=== PATIENT | female | born 1985 | race Caucasian/White ===

== ENCOUNTER 2024-04-14 10:52 | Emergency (ER) | payer MEDICARE, MEDICAID, SELFPAY ==
[2024-04-14 10:52] VITALS: BP 128/74; PULSE 100; RESP 17; TEMP 36.9; O2SAT 98; BMI 32.1
--- NOTE | 2024-04-14 11:07 | XR_ITS ---
Examination: Shoulder,left, 3 views Technique: Shoulder AP internal rotation, AP external rotation, Y view shoulder, 3 views Exam date and time :April 14, 2024 1109 hours INDICATIONS: Patient fell today with injury to the shoulder, shoulder pain. FINDINGS: Acute fractures proximal humerus including through the humeral neck and proximal shaft as well as fractures through the humeral head greater tuberosity No shoulder dislocation IMPRESSION: Acute nondisplaced fractures through the proximal humerus including the humeral neck and proximal shaft as well as rib tuberosity of the humeral head
--- NOTE | 2024-04-14 11:21 | PD.EDUPEX ---
Upper Extremity Injury RME/HPI General Chief Complaint: Extremity Injury, Upper Stated Complaint: left shoulder pain from fall this am Time Seen by Provider: 04/14/24 11:07 Arrival date/time: 04/14/24 10:52 39-year-old female presents emergency department complaint of slip and fall today patient reports injuring her left shoulder patient reports no head or neck injury Limitations: no limitations Related Data Home Medications ?Medication ?Instructions ?Recorded ?Confirmed hydrocodone 10 mg-acetaminophen 1 tab PO Q6H PRN Pain ##0 06/23/13 09/16/20 325 mg tablet oxybutynin chloride 5 mg tablet 5 mg PO BID BLADDER CONTROL #0 tabs 12/13/13 09/16/20 metformin 500 mg tablet 500 mg PO BID #0 tabs 06/13/16 09/16/20 (Glucophage) duloxetine 20 mg capsule,delayed 60 mg PO BID 06/18/19 09/16/20 release (Cymbalta) Previous Rx's ?Medication ?Instructions ?Recorded blood sugar diagnostic (Blood #100 ea 09/17/20 Glucose Test strips) blood-glucose meter (Blood Glucose #1 ea 09/17/20 Monitoring kit) insulin glargine 100 unit/mL (3 8 unit (0.08 mL) subcut QAM #15 mL 09/17/20 mL) subcutaneous pen (Lantus Solostar U-100 Insulin) lancets 30 gauge (BD Ultra-Fine II #100 ea 09/17/20 Lancets) midodrine 5 mg tablet 5 mg PO TID #30 tabs 09/17/20 pen needle, diabetic 31 gauge x #50 ea 09/17/20 1/ (Lite Touch Insulin Pen [place]) Allergies Allergy/AdvReac Type Severity Reaction Status Date / Time codeine Allergy Severe Hives Verified 04/14/24 10:56 meloxicam Allergy Severe Abdominal Verified 04/14/24 10:56 Pain nitrofurantoin Allergy Severe VOMITING, Verified 04/14/24 10:56 DIARRHEA propoxyphene Allergy Severe Difficulty Verified 04/14/24 10:56 [From [facility]] Breathing Review of Systems Review of Systems Systems Reviewed: All systems reviewed, normal except as documented Constitutional Constitutional: Reports system reviewed and no additional complaints, except as documented, Denies fever(s) and Denies headache(s) Eyes Eyes: Reports system reviewed and no additional complaints, except as documented and Denies blurry vision ENT Ears, Nose, Mouth, and Throat: Reports system reviewed and no additional complaints, except as documented, Denies headache(s), Denies nasal congestion and Denies nasal discharge Cardiovascular Cardiovascular: Reports system reviewed and no additional complaints, except as documented, Denies chest pain and Denies dyspnea Respiratory Respiratory: Reports system reviewed and no additional complaints, except as documented, Denies chest congestion, Denies cough and Denies dyspnea Gastrointestinal Gastrointestinal: Reports system reviewed and no additional complaints, except as documented and Denies abdominal pain Musculoskeletal Musculoskeletal: Reports system reviewed and no additional complaints, except as documented, Reports arthralgias, Denies deformity, Reports joint swelling, Denies numbness, Reports stiffness and Denies tingling Integumentary/Breasts Skin/Breast: Reports system reviewed and no additional complaints, except as documented and Denies rash Neurologic Neurologic: Reports system reviewed and no additional complaints, except as documented, Reports as per HPI, Denies headache(s), Denies numbness and Denies tingling Past Medical History Past Medical History NEUROLOGIC: Negative Neurological Disorders CARDIAC: Negative Cardiac Disorders ED Exam General Limitations: Present no limitations General appearance: Present alert and in no apparent distress Head Head exam: Present atraumatic Eye Eye exam: Present normal appearance, PERRL and EOMI ENT ENT exam: Present normal exam, normal oropharynx and mucous membranes moist Neck Neck exam: Present normal inspection, full ROM and trachea midline Chest Chest inspection: Present normal inspection and symmetric chest wall rise Respiratory Respiratory exam: Present normal lung sounds bilaterally Cardiovascular Cardiovascular exam: Present regular rate, normal rhythm and normal heart sounds Abdominal Exam Abdominal exam: Present soft and normal bowel sounds Extremities Exam Extremities exam: Present tenderness, normal capillary refill and joint swelling Back Exam Back exam: Present normal inspection and full ROM Neurological Exam Neurological exam: Present alert, oriented X3 and CN II-XII intact Psychiatric Psychiatric exam: Present normal affect and normal mood Skin Skin exam: Present warm, dry, intact and normal color Course Quality Measures none Orders Category Date Time Status XR shoulder LT min 2V Stat Exams 04/14/24 11:07 Completed Vital Signs Vital signs: Vital Signs Temperature 98.5 F 04/14/24 10:52 Pulse Rate 100 04/14/24 10:52 Respiratory Rate 17 04/14/24 10:52 Blood Pressure 128/74 04/14/24 10:52 Pulse Oximetry (%) 98 04/14/24 10:52 Oxygen Delivery Method Room Air 04/14/24 10:52 O2 saturation 98% room air within normal limits Extremity Injury MDM Narrative MDM Narrative:: 39-year-old female presents emergency department complaint of slip and fall today patient reports injuring her left shoulder patient reports no head or neck injury On exam patient is tenderness pain and swelling to the left upper extremity X-ray of the left shoulder obtained patient does have fracture Patient offered a sling but reports she has 1 at home Patient given pain medication here discharged home with pain meds Patient discharged home in no distress to follow-up with primary care doctor in the next 24 to 48 hours and for any worsening symptoms to return to the ER immediately Patient data External records reviewed:: [facility] previous records Clinical information provided by:: patient Social determinants that could affect healthcare access:: none Patient has the following chronic illnesses:: See history How is presenting disease/condition affected by chronic disease/condition?: no chronic disease Evaluation data The following diagnostics were reviewed and interpreted by me:: radiology exam(s) Lab and/or radiology exams considered but not ordered:: radiology obtained Interpretation Summary: Reviewed by me Medications / Prescriptions Medications or Prescriptions considered but not ordered:: Given Medication administrations:: Given Consultations Consultation(s) initiated? (list below): No Diagnosis Upper Extremity Injury Differential Diagnosis: dislocation of shoulder and fracture of humerus Most likely diagnosis given after review of the tests above:: Shoulder pain Admission Indicated Admission indicated?: not indicated Admission Request Was there a request for admission?: No Disposition Plan Disposition Plan: Discharge Discharge Attestation Discharge Attestation: The patient and all family members were given an opportunity to ask questions and understood the discharge instructions. Discharge instructions specifically effects, indications for sooner follow up or return to the emergency department, and the expected course of current diagnosis. Patient condition: Stable Discharge Plan Plan Patient Disposition: HOME (Self Care) Disposition Comment: stable Prescriptions/Referrals Prescriptions/Med Rec: No Action duloxetine [Cymbalta] 20 mg capsule,delayed release(DR/EC) 60 mg PO BID hydrocodone-acetaminophen 10-325 mg Tablet 1 tab PO Q6H PRN (Reason: Pain) Qty: 0 oxybutynin chloride 5 MG tablet 5 mg PO BID Qty: 0 metformin [Glucophage] 500 MG tablet 500 mg PO BID Qty: 0 (DME) blood-glucose meter [Blood Glucose Monitoring] Kit See Rx Instructions .ROUTE .MEDSUPPLY Qty: 1 0RF Rx Instructions: As directed check BS 3 times a day (DME) Blood Glucose Test Strip See Rx Instructions .ROUTE .MEDSUPPLY Qty: 100 0RF Rx Instructions: As directed check BS 3 times a day (DME) lancets [BD Ultra-Fine II Lancets] 30 gauge misc See Rx Instructions .ROUTE .MEDSUPPLY Qty: 100 0RF Rx Instructions: As directed check BS 3 times a day (DME) pen needle, diabetic [Lite Touch Insulin Pen [place]] 31 gauge x 1/4 needle See Rx Instructions .ROUTE .MEDSUPPLY Qty: 50 0RF Rx Instructions: As directed midodrine 5 mg tablet 5 mg PO TID Qty: 30 0RF Rx Instructions: do not give last dose of day after 6PM or within 4 hrs of bedtime Lantus Solostar U-100 Insulin 100 unit/mL (3 mL) insulin pen 8 unit subcut QAM Qty: 15 0RF Referrals: Missael Abdullahi MD [Primary Care Provider] - In 1 week Problem List Clinical Impression: Fracture of left shoulder Patient/Caregiver Discharge Instructions Education Materials: [facility] [employer] [facility] Additional Instructions: Please follow up with your primary care doctor in the next 24-48hrs for any worsening symptoms return here immediately It is importantly follow-up with primary doctor in order to get a referral to orthopedics Print Language: Polish Stand Alone Forms: Kellen Award Info., Patient Portal Info Letter DURAN/ALEJANDRO Supervising Physician DURAN/ALEJANDRO Supervising Physician: Dr. downing
== END 2024-04-14 11:41 | disposition home or self-care (01) ==
PROVIDERS: Emergency Provider Emergency Medicine; PCP Family Medicine
DX: S42.255A Nondisplaced fracture of greater tuberosity of left humerus, initial encounter for closed fracture (principal); S42.202A Unspecified fracture of upper end of left humerus, initial encounter for closed fracture; S42.215A Unspecified nondisplaced fracture of surgical neck of left humerus, initial encounter for closed fracture; S42.302A Unspecified fracture of shaft of humerus, left arm, initial encounter for closed fracture; W01.0XXA Fall on same level from slipping, tripping and stumbling without subsequent striking against object, initial encounter
CPT/HCPCS: 73030; 99283